=== PATIENT | male | born 1990 | race Caucasian/White ===

== ENCOUNTER 2019-05-09 15:39 | Outpatient (CLI) | payer SELFPAY ==
--- NOTE | 2019-05-09 | XR_ITS ---
WS: [id number] XR knee LT 3V* [id number] REASON FOR EXAM: LT KNEE PAIN FINDINGS: The meniscal spaces are all normal. The patella femoral articulation was normal. The patella tibial space is normal. There is no soft tissue swelling surrounding the knee. No fractures or other dyscrasias. XR/XR knee LT 3V* [id number] IMPRESSION: Negative left knee.
== END 2019-05-09 15:40 | disposition home or self-care (01) ==
LOC: RAD 15:48
PROVIDERS: Visit Provider Nurse Practitioner Family
DX: M25.562 Pain in left knee (principal)
CPT/HCPCS: 73562

== ENCOUNTER 2019-08-28 07:01 | Outpatient (CLI) | payer BC, SELFPAY ==
--- NOTE | 2019-08-28 07:09 | MR_ITS ---
WS: [id number] MRI RIGHT SHOULDER HISTORY: PAIN RIGHT SHOULDER COMPARISON: None available. TECHNIQUE: Multiplanar sequences of the shoulder joint are submitted. Moderate hypertrophic changes at the AC joint. There is intermediate signal at the AC joint and the a djacent acromion and clavicle. 5 mm osteophyte encroaches upon the supraspinatus muscle. No subacromi al or subdeltoid bursal distention. Focal area of increased signal in the junction between the supraspinatus and infraspinatus muscles an d tendons superior to the humeral head. The tendons themselves appear to be intact. There is no muscl e atrophy or edema. No os acromion. Biceps tendon is in normal position. Subchondral cysts over the h umeral head at the site of the rotator cuff attachment. No labral tear. MR/MR shoulder RT wo con* [id number] IMPRESSION: 1. 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 2. Soft tissue edema in the junction between the infraspinatus and supraspinat us muscles over the superior humeral head. The tendons appears spared. Probably related to impingement as the humeral head is slightly high riding.
== END 2019-08-28 07:02 | disposition home or self-care (01) ==
LOC: RADSHAW 07:06
PROVIDERS: PCP Nurse Practitioner Family; Visit Provider Nurse Practitioner Family
DX: M25.511 Pain in right shoulder (principal); M13.811 Other specified arthritis, right shoulder; R60.9 Edema, unspecified
CPT/HCPCS: 73221

== ENCOUNTER 2019-10-17 06:00 | Outpatient (RCR) | payer BC, SELFPAY | END 2019-10-19 23:59 | disposition home or self-care (01) | LOC: TPT 06:00 | PROVIDERS: PCP Nurse Practitioner Family; Referring Provider Nurse Practitioner Family; Visit Provider Nurse Practitioner Family | DX: Z47.89 Encounter for other orthopedic aftercare (principal) | CPT/HCPCS: 97110; 97161 ==

== ENCOUNTER 2019-10-20 06:00 | Outpatient (RCR) | payer BC, SELFPAY | END 2019-11-12 23:00 | disposition home or self-care (01) | LOC: TPT 06:00 | PROVIDERS: PCP Nurse Practitioner Family; Referring Provider Nurse Practitioner Family; Visit Provider Nurse Practitioner Family | DX: Z47.89 Encounter for other orthopedic aftercare (principal); M25.511 Pain in right shoulder | CPT/HCPCS: 97110 ==

== ENCOUNTER 2019-10-21 19:48 | Emergency (ER) | payer BC, SELFPAY ==
[2019-10-21 19:54] VITALS: BP 140/92; PULSE 106; RESP 18; TEMP 36.8; O2SAT 95; BMI 39.9
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
[2019-10-21] MEDS: HYDROcodone-acetaminophen 7.5-325 mg Tablet 1 TAB PO (20:29)
[2019-10-21 21:53] VITALS: BP 148/82; PULSE 77; RESP 18; O2SAT 96
== END 2019-10-21 21:58 | disposition home or self-care (01) ==
PROVIDERS: Emergency Provider Physician Assistant; PCP Nurse Practitioner Family
DX: S63.502A Unspecified sprain of left wrist, initial encounter (principal); S66.912A Strain of unspecified muscle, fascia and tendon at wrist and hand level, left hand, initial encounter; M25.562 Pain in left knee; M25.511 Pain in right shoulder; V89.2XXA Person injured in unspecified motor-vehicle accident, traffic, initial encounter
CPT/HCPCS: 12345; 73030; 73110; 73562; 99281; 99283

== ENCOUNTER 2021-01-16 18:48 | Emergency (ER) | payer SELFPAY ==
[2021-01-16 18:56] VITALS: BP 149/96; PULSE 108; RESP 18; TEMP 36.2; O2SAT 98; BMI 36.9
--- NOTE | 2021-01-16 20:06 | ED_ITS ---
HPI - General Adult General: Chief complaint: General Medical Stated complaint: Low Blood Sugar Time Seen by Provider: 01/16/21 20:06 History of Present Illness: HPI narrative: 30-year-old male patient comes in today for complaints of fatigue for the last 2 weeks. Patient today had an episode of low blood glucose with a recorded reading of 30 and then 66 after eating. On arrival to the ER the blood glucose was 107. Patient is an obese adult male. Patient denies any chronic medical problems. Patient does report that he is going through a divorce at this time. Patient also reports history of frequent sodas and energy drinks. Review of Systems General: Reports: 10 or more systems reviewed and unremarkable except in HPI and below Endo: Reports: other (Low blood sugar, fatigue) Physical Exam Const: COMMON NORMALS: no acute distress and patient oriented x3 GENERAL APPEARANCE: cooperative HENMT: COMMON NORMALS: normocephalic and Normal external nose present HEAD & SCALP: normal to inspection and normocephalic NOSE: Normal external nose present MOUTH: Normal oral and palatal mucosa present THROAT: posterior oropharynx normal Eye: GENERAL EYE: appearance normal, both eyes and all related structures Neck/C-Spine: COMMON NORMALS: full ROM Lymph: LYMPHATIC: no lymphadenopathy noted Chest: COMMONS NORMALS: normal inspection of the chest Resp: COMMON NORMALS: normal respiratory effort EFFORT & INSPECTION: Yes able to speak in complete sentences Cardio: COMMON NORMALS: regular rate and regular rhythm RATE: regular rate RHYTHM: regular rhythm GI: COMMON NORMALS: non-tender : COMMON NORMALS: Yes no CVA tenderness BLADDER/KIDNEY EXAM: Yes no CVA tenderness Back/Pelvis: COMMON NORMALS: no CVA tenderness and thoracic and lumbar spine normal to inspection Extremity: COMMON NORMALS: normal to inspection Neuro: COMMON NORMALS: patient oriented x3 and moves all extremities Psych: COMMON NORMALS: mental status grossly normal and cooperative Skin: COMMON NORMALS: no rashes or lesions noted GENERAL SKIN EXAM: no rashes or lesions noted Course Vital Signs: Vital signs: Vital Signs Temperature 97.1 F L 01/16/21 18:56 Pulse Rate 108 H 01/16/21 18:56 Respiratory Rate 18 01/16/21 18:56 Blood Pressure 149/96 01/16/21 18:56 Pulse Oximetry 98 01/16/21 18:56 MDM - General Adult MDM Narrative: Medical decision making narrative: Patient came in today for concerns of a low blood glucose. On exam patient appears well. Patient appears no acute distress. Abdomen soft nontender. Skin is warm and dry. Patient moves all extremities well. Vital signs were normal except for elevation in blood pressure. Differential diagnosis includes but not limited to to hypoglycemia, undiagnosed diabetes mellitus, malingering. Blood glucose here was 107. Reviewed exam with patient with recommendations for dietary changes and lifestyle modifications. Recommended patient following up with primary care for further evaluation and treatment. Patient did not want any labs done at this time and wanted to wait until his appointment that he had scheduled for Tuesday. Patient appeared in no acute distress and was well at discharge. Discussed monitoring blood glucose with glucometer at home. Discharge Plan Discharge Patient Disposition: Home Clinical Impression: Hypoglycemia without diagnosis of diabetes mellitus Condition: Stable Discharge Orders: Discharge ED (Routine); Ordered 01/16/21 Ordered By: Tao Crenshaw Referrals: Moira Coleman APN [Primary Care Provider] - Discharge Diet: Usual diet Discharge Activity: Increase activity as tolerated Patient Instructions: Non-diabetic Hypoglycemia (ED), Opioid Safety Activity Restrictions/Additional Instructions: Most often hypoglycemia in a nondiabetic patient should be managed with dietary changes. These dietary changes including eating foods high in fiber, decreasing concentrated sweets, eating plenty of fruits and vegetables, and lean meats. Monitor blood sugar 1-2 times a day with fasting sugars in the morning and 2- hour sugars after eating, keep a record of these so he can take them to your scheduled appointment on Tuesday. Follow-up with primary care as scheduled on Tuesday. Return to the emergency department for new concerns or worsening symptoms. Coding Level of Care Code ED [employer] Supervisor for Ita Parra
[2021-01-16 20:56] VITALS: BP 128/86; PULSE 72; RESP 18; O2SAT 98
[2021-01-17 09:39] LABS: Glucose Point of Care 107 mg/dL (70-110)
== END 2021-01-16 20:57 | disposition home or self-care (01) ==
PROVIDERS: Emergency Provider Nurse Practitioner Family; PCP Nurse Practitioner Family
DX: E16.2 Hypoglycemia, unspecified (principal)
CPT/HCPCS: 36416; 82962; 99282